=== PATIENT | male | born 1975 | race Caucasian/White ===

== ENCOUNTER 2017-04-08 13:37 | Emergency (ER) | payer OTHER ==
[~2017-04-08] VITALS: Ht 177.8 cm; Wt 147.4 kg
[~2017-04-08 13:37] MED LIST: MEDROL 4MG. DOSE4 MG PO; PROMETHAZINE D118 ML PO; PROVENTIL0.09 MG/A1 IH; ZITHROMAX Z PA250 MG PO
--- OUTSIDE RECORDS SUMMARY | 2017-04-08 13:42 | External Medical Summary Rpt ---
Author Author [facility], [employer] Organization [employer] Address Unknown Phone Unavailable
--- OUTSIDE RECORDS SUMMARY | 2017-04-08 13:42 | External Medical Summary Rpt ---
Demographics Preferred Language Somali Marital Status Unknown Orthodox Affiliation Unknown Race Unknown Ethnic Group Unknown Author Author , Organization [employer] Address Unknown Phone Unavailable Purpose Continuity of Care Document - through 2016 Immunization No patient found.
--- OUTSIDE RECORDS SUMMARY | 2017-04-08 13:42 | External Medical Summary Rpt ---
Demographics Preferred Language Cypriot Marital Status Unknown Episcopal Affiliation Unknown Race Unknown Ethnic Group Unknown Author Author , Organization [employer] Address Unknown Phone Unavailable Purpose Continuity of Care Document - through 2016 Immunization No patient found.
--- NOTE | 2017-04-08 14:43 | Urgent Treatment Center Report ---
History of Present Issue Date/Time Seen by Provider 04/08/17 1423 Visit Reason Pt arrived:Walked Presenting Problem:PT STATES RASH TO R ARM AND R SIDE THAT HE NOTICED AFTER HE MOWED YESTERDAY Location if Accident: Onset of symptoms date/time:04/07/17/ or onset unknown for:MEDICAL HX UNKNOWN Have you (or family members/close friends) recently traveled outside the [place]? N If Yes, where/when: Have you had exposure to infectious disease within the past month? TB? Other? Specify: Patient state that he was seen earlier today at the local clinic States that they gave him a steroid shot and then give him some cream. States that when he got home he broke out somemore and got worried because his girlfriend was recently diagnosed with Shingles and he got thinking maybe that was what he had too. ALLERGIES Coded Allergies: No Known Allergies (02/03/17) Home Medications Active Scripts ALBUTEROL (Proventil Hfa Inhaler) 1-2 PUFF IH Q4-6H PRN PRN SOA, wheezing #1 CAN Prov: 02/03/17 History Medical History General CAD? No Angina: No MD: No Hypertension? No Hyperlipidemia? No CHF? No DVT? No PE? No COPD? No Asthma? No Anemia? No GERD? No Gastric ulcers? No GI Bleed? No Hernia? No Thyroid Problems? No Hypothyroidism? No CVA? No Seizures? No Diabetes? No Renal Insuffiency? No UTI? No Stones? No BPH? No GB Disease: No Nephritic Syndrome? No Asplenia? No Hepatitis? No Sickle Cell Disease? No Arthritis? No Migraines? No Cataracts? No Glaucoma? No MRSA? No HIV? No TB? No Anxiety? No Depression? No Cancer? No More? No Immunization HX DT/Tetanus 5-10 Years Ago Surgical Hx Previous Surgery?Y Hernia Repair TONSILS VASECTOMY Social History Smoking Hx Smoker: Never Smoker Tobacco: No Alcohol Alcohol: No Review of Systems All Other Systems Reviewed and Negative Comment Rash on right elbow area and on right side. Scattered rash that itches and appeared after he mowed the grass yesterday Physical Exam Vital Signs Vital Signs Date Time Temp Pulse Resp B/P Pulse O2 O2 Flow FiO2 Ox Delivery Rate 04/08 1453 98.4 82 20 145/90 96 04/08 1356 98.4 82 20 145/90 96 General Appearance normal appearance, WD/WN, no apparent distress Respiratory Status Yes: trachea midline, chest symmetrical, non tender chest. No: respiratory distress. Cardiovascular normal exam, regular rate/rhythm, no peripheral edema Neurologic alert, cooperative extension agent II-XII nml as tested, normal exam, no motor/sensory deficits, oriented x 3 Skin rash, red raised rash on inner aspect of right elbow and right side from under arm to belt like like that associated with allergic urticaria Medical Decision Making LABS/Meds/Orders Pt receiving controlled substance in ED? No Results/Orders Current Medication Orders Sig/Patrick Start time Last Medication Dose Route Stop Time Status Admin Diphenhydramine HCl 50 MG ONCE ONE 04/08 1445 AC PO 04/08 1446 Famotidine 20 MG ONCE ONE 04/08 1445 CKDr PO 04/08 1446 Loratadine 10 MG ONCE ONE 04/08 1445 AC PO 04/08 1446 Diphenhydramine HCl 0 .STK-MED ONE 04/08 1440 DC PO Departure Departure Time of Disposition 1441 Disposition DC Home or Self Care(routine) Clinical Impression Primary Impression: Allergic urticaria Condition STABLE Referrals CLARA BASS (PCP): 3 Days-Call Office if no improvement or worsening of symptoms Patient Instructions DI for General Allergic Reactions Additional Instructions Take benadryl by mouth to help with the itching and do not scratch Continue to use cream previously prescribed Follow up with family doctor Return if needed Discharge Counseling Counseled pt/family regarding diagnosis, test results, medications/RX, home care, follow up needs at 1621
[2017-04-08 14:53] VITALS: BP 145/90
== END 2017-04-08 14:53 | disposition home or self-care (01) ==
LOC: UTC 13:37
DX: L50.0 Allergic urticaria (principal)